=== PATIENT | female | born 1970 | race Caucasian/White ===

== ENCOUNTER 2016-04-06 14:59 | Emergency (ER) | payer OTHER ==
[2016-04-06 15:16] VITALS: PULSE 70; RESP 22; TEMP 97.5; O2SAT 96
--- NOTE | 2016-04-06 15:39 | DX ---
Right Wrist Series, 4 views Indication: Fall.. Comparison: None Findings: The bones are anatomically aligned. No fracture or joint space abnormality. Specifically, the navicular bone and scapholunate interval are normal. Impression: Negative. No acute fracture.
--- NOTE | 2016-04-06 15:39 | UCPHY ---
H & P Time Seen by Provider: 04/06/16 15:36 Patient Type: Established HPI/ROS: 45-year-old female presents complaining of right wrist pain after slipping on the ice Denies numbness or tingling Initially landed on her buttocks and believes she placed her hand backward possibly landing on an outstretched hand. Review of systems As per HPI General no fever no chills no weakness HEENT no eye pain no eye discharge. No eye redness, no sore throat Respiratory no cough, no shortness of breath Cardiac no chest pain, no peripheral edema GI no abdominal pain, no diarrhea, no constipation, no nausea, no vomiting no flank pain, no hematuria, no dysuria Musculoskeletal no myalgias, positive joint pain Heme no easy bruising, no easy bleeding Endo no polyuria, no polydipsia Skin no rashes, no pruritus Neuro no syncope, no dizziness, no headaches Psych is no suicidal ideation, no homicidal ideation Past Medical/Surgical History: Depression Social History: Works full-time as a nurse Denies alcohol or drug use Smoking Status: Never smoked Physical Exam: 45-year-old female Alert and oriented in no acute distress nontoxic appearance, afebrile Atraumatic normocephalic Neck no JVD Lungs clear to auscultation, no respiratory distress Heart regular rate and rhythm Extremities no cyanosis clubbing edema Except right wrist positive edema and tenderness to palpation at distal radius Good capillary refill normal sensation, decreased range of motion at rest secondary to pain Constitutional: Initial Vital Signs Temperature (C) 36.4 C 04/06/16 15:12 Heart Rate 70 04/06/16 15:12 Respiratory Rate 22 H 04/06/16 15:12 O2 Sat (%) 96 04/06/16 15:12 O2 Delivery Mode Room Air Allergies/Adverse Reactions: morphine Allergy (Verified 04/06/16 15:16) Home Medications: Medication Instructions Recorded Ambien 11/08/14 CYCLOBENZAPRINE HCL [Flexeril] 5 mg PO TIDPRN PRN #20 tab 11/08/14 Zoloft 50mg (RX) 11/08/14 oxyCODONE/APAP 5/325 [Percocet 1 - 2 tab PO Q6H PRN #20 tab 11/08/14 5/325] oxyCODONE/APAP 5/325 [Percocet 1 - 2 tab PO Q12H PRN #16 tab 04/06/16 5/325 (*)] Medical Decision Making - Diagnostics Imaging: Right wrist x-ray negative for fracture ED Course/Re-evaluation: Patient seen and evaluated for right wrist pain and swelling after slipping on ice X-ray negative for fracture Impression Right wrist sprain/contusion Plan Velcro wrist splint Follow up Ortho as needed Departure - Departure Disposition: Home, Routine, Self-Care Clinical Impression: Right wrist sprain, Contusion of right wrist, initial encounter Condition: Good Instructions: Wrist Sprain (ED) Referrals: Rosalinda Poe DO [Primary Care Provider] - As per Instructions Prescriptions: oxyCODONE/APAP 5/325 [Percocet 5/325 (*)] 1 - 2 tab PO Q12H PRN #16 tab PRN Reason: Pain, Severe - PQRS PQRS Measurement: na
== END 2016-04-06 15:55 | disposition home or self-care (01) ==
LOC: CED 14:59
DX: S60.211A Contusion of right wrist, initial encounter (principal); S63.501A Unspecified sprain of right wrist, initial encounter; W00.0XXA Fall on same level due to ice and snow, initial encounter
CPT/HCPCS: 73110-PO; 99214-PO; G0463-PO; L3908